=== PATIENT | female | born 1990 | race Caucasian/White ===

== ENCOUNTER 2016-09-07 06:45 | Emergency (ER) | payer OTHER ==
[~2016-09-07] VITALS: Ht 172.7 cm; Wt 69.4 kg
--- NOTE | 2016-09-07 06:49 | NUR ---
ARRIVAL PT ARRIVED AMBULATORY TO ER 6 C/O LEFT FLANK PAIN THAT BEGAN YESTERDAY. PT STATES HEMATURIA X3 DAYS. NO ACUTE DISTRESS NOTED. EDP NOTIFIED OF PT ARRIVAL.
--- NOTE | 2016-09-07 07:21 | NUR ---
CT PT BACK FROM CT
[2016-09-07 07:28] LABS: BASOPHIL % 0.3 % (0.0-0.2); EOSINOPHIL # 0.1 10^3/uL (0.0-0.2); EOSINOPHIL % 0.4 % (0.0-5.0); HEMATOCRIT 44.6 % (36.0-46.0); HEMOGLOBIN 14.9 g/dL (12.0-15.0); LYMPHOCYTES # 1.5 10^3/uL (1.0-4.8); LYMPHOCYTES % 12.5 % (24.0-44.0); MEAN CELL HGB 30.2 pg (26-34); MEAN CELL HGB CONCENTRATION 33.4 g/dL (33-37); MEAN CORP VOLUME 90.5 fL (78-100); MONOCYTES # 0.8 10^3/uL (0.3-0.8); NEUTROPHIL # 9.3 10^3/uL (1.8-7.7); NEUTROPHILS % 79.5 % (41.0-85.0); RED CELL DISTRIBUTION WIDTH 13.9 % (11.5-14.5); WHITE BLOOD CELL 11.7 10^3/uL (4.5-11.0)
--- NOTE | 2016-09-07 07:37 | DIREP ---
PROCEDURE:CT ABDOMEN/PELVIS W/O CONTRAST COMPARISON:None. INDICATIONS:left flank pain, hematuria, history of renal stones TECHNIQUE:Axial images were created through the abdomen and pelvis without intravenous contrast material. No oral contrast was administered. Sagittal and coronal reconstructions were performed from source images. FINDINGS: LUNG BASES:Normal. No visible pulmonary or pleural disease. LIVER:Normal. No significant liver lesions are identified. BILIARY:A filling defect is seen in the gallbladder suspicious for gallstones. PANCREAS:Normal. No lesion, fluid collection, ductal dilatation, or atrophy. SPLEEN:Normal. No enlargement or focal lesion. ADRENALS:Normal. No mass or enlargement. URINARY TRACT:Multiple small or punctate bilateral renal calculi are seen. No hydronephrosis or ureteral calculus is seen. AORTA/VASCULAR:Normal. No aneurysm. RETROPERITONEUM:Normal. No mass or adenopathy. BOWEL/MESENTERY:Normal. There is no intestinal obstruction, free fluid, free air or mesenteric inflammatory changes. The appendix is normal. ABDOMINAL WALL:Normal. No mass or hernia. PELVIC ORGANS:Normal. No visible mass. Pelvic organs appropriate for patient age. BONES:A 10 mm ovoid sclerotic lesion is seen in the left sacrum consistent with a bone island. OTHER:Negative. CONCLUSION: 1. Bilateral nephrolithiasis. No ureteral calculus or hydronephrosis is seen. 2. Findings suspicious for cholelithiasis. Recommend further evaluation with a gallbladder ultrasound exam. Dictated by: Juancarlos Vickers M.D. On 09/07/2016 at 07:31 AM
[2016-09-07 07:39] LABS: CALCIUM 9.1 mg/dL (8.4-10.5); CARBON DIOXIDE 25.8 mmol/L (20.0-32)
[2016-09-07 07:59] LABS: BILIRUBIN,URINE NEGATIVE (NEGATIVE); UROBILINOGEN,URINE NORMAL (NEGATIVE)
[2016-09-07 08:02] LABS: APPEARANCE,URINE CLOUDY (CLEAR); UA COLOR STRAW (YELLOW)
[2016-09-07 08:14] LABS: WBC,URINE TNTC WBC/HPF (0-2)
--- NOTE | 2016-09-07 08:28 | ER.PDOC ---
General Chief Complaint: Flank Pain Stated Complaint: FEMALE Time seen by MD: 07:15 Source: patient Exam Limitations: no limitations History of Present Illness Timing/Duration: 24 hours Severity/Quality: moderate, dullness Radiation: back (low back) Associated Symptoms: denies symptoms Exacerbated by: nothing Relieved By: nothing Allergies: Coded Allergies: cephalexin (Verified Allergy, Unknown, ITCHING, 09/07/16) latex (Verified Allergy, Unknown, ITCHING, 09/07/16) lupe (Verified Allergy, Unknown, Anaphylaxis Shock, 09/07/16) morphine (Verified Allergy, Unknown, Hives, 09/07/16) Home Meds No Active Prescriptions or Reported Meds Vital Signs First Vital Signs Date Time Temp Pulse Resp B/P (MAP) Pulse Ox O2 Delivery O2 Flow Rate FiO2 09/07/16 06:55 97.7 93 18 99 09/07/16 06:57 124/98 (107) Last Vital Signs Date Time Temp Pulse Resp B/P (MAP) Pulse Ox O2 Delivery O2 Flow Rate FiO2 09/07/16 06:57 97.7 100 18 124/98 (107) 99 Past Medical History Medical History: no pertinent history Surgical History: LMP (females 10-50): last week Social History Smoking: less than 1 pack/day Alcohol Use: heavy Drug Use: marijuana Reviewed Nursing Reviewed: Vital Signs, Abn. Noted, Nursing Assessment Constitutional: no symptoms reported EENTM: no symptoms reported Respiratory: no symptoms reported Cardiovascular: no symptoms reported Gastrointestinal: no symptoms reported Genitourinary: dysuria Musculoskeletal: back pain (low back pain) Skin: no symptoms reported Psychiatric/Neurological: no symptoms reported Endocrine: no symptoms reported Hematologic/Lymphatic: no symptoms reported All Other Systems: Reviewed and Negative Physical Exam General Appearance: No Apparent Distress, WD/WN HEENT: PERRL/EOMI, Normal ENT Inspection, TMs Normal, Pharynx Normal Neck: Non-Tender, Full Range of Motion, Supple, Normal Inspection Respiratory: chest non-tender, lungs clear, normal breath sounds, no respiratory distress, no accessory muscle use Cardiovascular: Normal Peripheral Pulses, Regular Rate, Rhythm, No Edema, No Gallop, No JVD, No Murmur Gastrointestinal: Normal Bowel Sounds, Non Tender, Soft Back: Normal Inspection, CVA Tenderness (L) 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, No Motor/Sensory Deficits, Alert, Normal Mood/Affect, Oriented x 3 Skin: Normal Color, Warm/Dry Lymphatic: No Adenopathy Results/Orders Results/Orders Laboratory Tests Test 09/07/16 07:15 09/07/16 07:17 White Blood Count 11.7 10^3/uL (4.5-11.0) Red Blood Count 4.93 10^6/uL (4.00-5.20) Hemoglobin 14.9 g/dL (12.0-15.0) Hematocrit 44.6 % (36.0-46.0) Mean Corpuscular Volume 90.5 fL (78-100) Mean Corpuscular Hemoglobin 30.2 pg (26-34) Mean Corpuscular Hemoglobin Concent 33.4 g/dL (33-37) Red Cell Distribution Width 13.9 % (11.5-14.5) Platelet Count 244 10^3/uL (150-400) Mean Platelet Volume 10.0 fL (7.8-11.0) Neutrophils (%) (Auto) 79.5 % (41.0-85.0) Lymphocytes (%) (Auto) 12.5 % (24.0-44.0) Monocytes (%) (Auto) 7.0 % (5.0-12.0) Neutrophils # (Auto) 9.3 10^3/uL (1.8-7.7) Lymphocytes # (Auto) 1.5 10^3/uL (1.0-4.8) Monocytes # (Auto) 0.8 10^3/uL (0.3-0.8) Absolute Immature Granulocyte (auto 0.03 10^3 u/L (0-2) Eosinophils % 0.4 % (0.0-5.0) Basophils % 0.3 % (0.0-0.2) Basophils # 0.0 10^3/uL (0.0-0.1) Eosinophil Count 0.1 10^3/uL (0.0-0.2) Sodium Level 140 mmol/L (132-145) Potassium Level 4.6 mmol/L (3.6-5.2) Chloride Level 106.0 mmol/L (96-109) Carbon Dioxide Level 25.8 mmol/L (20.0-32) Anion Gap 12.8 Blood Urea Nitrogen 14 mg/dL (7-18) Creatinine 0.92 mg/dL (0.59-1.40) Estimated GFR () 88.0 BUN/Creatinine Ratio 15.0 Glucose Level 104 mg/dL (70-110) Calculated Osmolality 290.0 Calcium Level 9.1 mg/dL (8.4-10.5) Total Bilirubin 0.2 mg/dL (0.2-1.0) Aspartate Amino Transf (AST/SGOT) 10 U/L (0-35) Alanine Aminotransferase (ALT/SGPT) 21 U/L (12-78) Alkaline Phosphatase 55 U/L (50-136) Total Protein 7.3 g/dL (6.4-8.2) Albumin 4.3 g/dL (3.4-5.0) Globulin 3.0 Serum HCG, Qualitative Negative (NEGATIVE) Percent Immature Gran (Cell Imm) 0.30 % (0.00-0.50) Urine Collection Type Ccms Urine Color Straw (YELLOW) Urine Appearance Cloudy (CLEAR) Urine Bilirubin Negative MG/DL (NEGATIVE) Urine Ketones Negative (NEGATIVE) Urine Specific Flushing 1.000 (1.005-1.035) Urine pH 6.5 (5.0-6.0) Urine Protein Negative (NEGATIVE) Urine Urobilinogen Normal (NEGATIVE) Urine Nitrate Negative (NEGATIVE) Urine Leukocyte Esterase 500/ul 2+ (NEGATIVE) Urine Blood 250 4+ (NEGATIVE) Urine RBC Tntc RBC/HPF (NONE SEEN) Urine WBC Tntc WBC/HPF (0-2) Urine Squamous Epithelial Cells Few #/HPF (FEW) Urine Bacteria Few (NONE SEEN) Urine Glucose Normal (NEGATIVE) EKG/XRAY/CT/US CT Comments: ct shows punctate nephrolithiasis, no obstructions Course Blood Pressure Systolic: 124 Blood Pressure Diastolic: 98 Blood Pressure Mean: 107 Departure Time of Disposition: 08:27 Disposition: 01 HOME, SELF-CARE Impression: Primary Impression: Pyelonephritis Additional Impression: Bilateral nephrolithiasis Condition: Stable Referrals: PCP,UNKNOWN (PCP) PRIMARY CARE PROVIDER Additional Instructions: cipro 500mg po bid 14 days see pcp ultram 50mg 1 q 4 hours PRN Return PRN Scripts No Active Prescriptions or Reported Meds Problem Qualifiers LIANA DURAN MD Sep 07, 2016 08:28
== END 2016-09-07 08:35 | disposition home or self-care (01) ==
LOC: ER 06:45
DX: N12 Tubulo-interstitial nephritis, not specified as acute or chronic (principal); N20.0 Calculus of kidney; F12.10 Cannabis abuse, uncomplicated; F17.200 Nicotine dependence, unspecified, uncomplicated; Z88.1 Allergy status to other antibiotic agents; Z88.5 Allergy status to narcotic agent; Z91.040 Latex allergy status; Z91.018 Allergy to other foods
CPT/HCPCS: 36415; 74176; 80053; 81000; 84703; 85025; 87077; 87086; 87186; 99285